=== PATIENT | male | born 1955 | race Caucasian/White ===

== ENCOUNTER 2024-01-22 17:15 | Inpatient (IN) | payer MEDICAID ==
[~2024-01-22] VITALS: Ht 182.9 cm; Wt 75.7 kg
[2024-01-22 17:33] LABS: BASOPHILS % (AUTO) 0.1 % (0.0-2.0); EOSINOPHILS % (AUTO) 0.1 % (0.0-6.0); HEMATOCRIT 43 % (39-51); HEMOGLOBIN 12.8 g/dL (13.5-17.5); LYMPHOCYTES # (AUTO) 2.3 K/uL (0.8-4.8); LYMPHOCYTES % (AUTO) 12.4 % (20.0-44.0); MEAN CORPUSCULAR HEMOGLOBIN 23 PG (26.0-33.0); MEAN CORPUSCULAR HGB CONC 30 g/dl (31.0-36.0); MEAN CORPUSCULAR VOLUME 77 fL (80-96); MONOCYTES # (AUTO) 0.9 K/uL (0.1-1.30); MONOCYTES % (AUTO) 4.7 % (2.0-12.0); NEUTROPHILS # (AUTO) 15.2 K/uL (1.8-8.9); NEUTROPHILS % (AUTO) 82.7 % (43.0-81.0); PLATELET COUNT (AUTO) 371 K/uL (150-450); RED BLOOD CELL COUNT(AUTO) 5.64 MIL/uL (4.5-6.0); RED CELL DISTRIBUTION WIDTH 20.7 % (11.5-15.0); WHITE BLOOD COUNT (AUTO) 18.3 K/uL (4.3-11.0)
[2024-01-22 17:41] LABS: CALCIUM, SERUM 10.4 mg/dL (8.5-10.1); CARBON DIOXIDE 26 mmol/L (21-32); CHLORIDE 111 mmol/L (98-107); CREATININE 1.3 mg/dL (0.6-1.3); GLUCOSE 235 mg/dL (74-106); POTASSIUM 4.6 mmol/L (3.5-5.1); SODIUM SERUM 150 mmol/L (136-145); UREA NITROGEN, BLOOD 57 mg/dL (7-18)
[2024-01-22] MEDS: CEFEPIME 1 GM in IV D5W 50 ML IV ONE (17:46)
[2024-01-22] MEDS: VANCOMYCIN 1 GM in IV D5W 250 ML IV ONE (17:46)
[2024-01-22] MEDS: IV NS 0.9% 1,000 ML BAG IV ONE (17:46)
[2024-01-22 17:50] LABS: INR 1.53 (0.91-1.10); PARTIAL THROMBOPLASTIN TIME 24.6 SEC (24.3-34.3); PROTHROMBIN TIME 15.4 SECS (9.2-11.1)
[2024-01-22 17:53] LABS: LACTIC ACID 5.8 mmol/L (0.4-2.0)
[2024-01-22 17:56] LABS: ALANINE AMINOTRANSFERASE 35 U/L (12-78); ALBUMIN 2.5 g/dL (3.4-5.0); ALKALINE PHOSPHATASE 183 U/L (46-116); ASPARTATE AMINOTRANSFERASE 36 U/L (15-37); BILIRUBIN,DIRECT 0.2 mg/dL (0.0-0.2); BILIRUBIN,TOTAL 0.4 mg/dL (0.2-1.0); TOTAL PROTEIN, SERUM 10.1 g/dL (6.4-8.2)
[2024-01-22] MEDS ORDERED: MIDAZOLAM HCL 100 MG in IV NS 0.9% 80 ML IV PRN (18:00)
[2024-01-22 18:11] LABS: LYMPHOCYTES % (MANUAL) 14 % (16-48); MONOCYTES % (MANUAL) 4 % (0-11.0); NEUTROPHILS % (MANUAL) 82 (42-76); PLATELET ESTIMATE ADEQUATE
[2024-01-22 18:12] LABS: ANISOCYTOSIS 1+
[2024-01-22] MEDS ORDERED: LINA5TAB GT (18:44)
[2024-01-22] MEDS ORDERED: MAGN400O6 GT (18:44)
[2024-01-22] MEDS ORDERED: DOCU100C36 GT (18:44)
[2024-01-22] MEDS ORDERED: ACET-637 GT (18:44)
[2024-01-22] MEDS ORDERED: AMIN30LI66 GT (18:44)
[2024-01-22] MEDS ORDERED: SENN-261 GT (18:44)
[2024-01-22] MEDS ORDERED: CRAN300T GT (18:44)
[2024-01-22] MEDS ORDERED: APIX5TAB GT (18:44)
[2024-01-22] MEDS ORDERED: METF-442 GT (18:44)
[2024-01-22] MEDS ORDERED: MULT9LIQ6 GT (18:44)
[2024-01-22] MEDS ORDERED: INSU100V39 SQ (18:44)
[2024-01-22] MEDS ORDERED: ASCO500L2 GT (18:44)
[2024-01-22] MEDS ORDERED: ATOR20TA GT (18:44)
[2024-01-22] MEDS ORDERED: ACET325T53 GT (18:44)
[2024-01-22] MEDS ORDERED: Z GUARD REMEDY 4 OZ OINT TP PRN (19:00)
[2024-01-22] MEDS ORDERED: MAGNESIUM HYDROXIDE 30 ML UDC PO PRN (19:00)
[2024-01-22] MEDS ORDERED: ONDANSETRON HCL/PF 4 MG/2 ML VIAL IVP PRN (19:00)
[2024-01-22] MEDS ORDERED: MAG HYDROX/AL HYDROX/SIMETH 30 ML UDC PO PRN (19:00)
[2024-01-22] MEDS ORDERED: ACETAMINOPHEN 325 MG TABLET PO PRN (19:00)
[2024-01-22 19:15] LABS: ABG BASE EXCESS -2.5 mmol/L (-2.0-3.0); ABG OXYGEN SATURATION 76.9 % (94.0-98.0); ABG PCO2 43.8 mmHg (35.0-48.0); ABG PH 7.342 (7.350-7.450); ABG PO2 44.7 mmHg (83.0-108.0); ABG TOTAL HEMOGLOBIN 11.7 G/dL (13.5-17.5); COHb 0.3 % (0.5-1.5); MetHb 0.3 % (0.0-1.5); O2Hb 76.4 % (94.0-97.0); PEEP,BG 5 cm H2O; SITE, ABG LEFT RADIAL; VT, ABG 500 mL
[2024-01-22] MEDS ORDERED: CEFEPIME 1 GM in IV D5W 50 ML IV SCH (21:00)
[2024-01-23] VITALS (73 sets, daily range): BP systolic 76–120; BP diastolic 54–91; TEMP 98.4–101; O2SAT 97–100
[2024-01-23] MEDS: PROPOFOL 100 ML IV PRN (00:04)
[2024-01-23] MEDS: IV NS 0.9% 1,000 ML IV PRN (00:37)
[2024-01-23 04:51] LABS: BASOPHILS % (AUTO) 0.2 % (0.0-2.0); HEMATOCRIT 34 % (39-51); HEMOGLOBIN 10.3 g/dL (13.5-17.5); LYMPHOCYTES # (AUTO) 0.9 K/uL (0.8-4.8); LYMPHOCYTES % (AUTO) 4.7 % (20.0-44.0); MEAN CORPUSCULAR HEMOGLOBIN 22 PG (26.0-33.0); MEAN CORPUSCULAR HGB CONC 30 g/dl (31.0-36.0); MEAN CORPUSCULAR VOLUME 74 fL (80-96); MONOCYTES # (AUTO) 1.1 K/uL (0.1-1.30); NEUTROPHILS # (AUTO) 16.4 K/uL (1.8-8.9); NEUTROPHILS % (AUTO) 89.1 % (43.0-81.0); PLATELET COUNT (AUTO) 325 K/uL (150-450); RED BLOOD CELL COUNT(AUTO) 4.62 MIL/uL (4.5-6.0); RED CELL DISTRIBUTION WIDTH 20.4 % (11.5-15.0); WHITE BLOOD COUNT (AUTO) 18.5 K/uL (4.3-11.0)
[2024-01-23 07:09] LABS: CALCIUM, SERUM 9.3 mg/dL (8.5-10.1); CARBON DIOXIDE 24 mmol/L (21-32); CHLORIDE 115 mmol/L (98-107); CREATININE 1.1 mg/dL (0.6-1.3); GLUCOSE 178 mg/dL (74-106); MAGNESIUM 2.5 mg/dL (1.8-2.4); PHOSPHORUS 3.2 mg/dL (2.5-4.9); POTASSIUM 4.7 mmol/L (3.5-5.1); SODIUM SERUM 152 mmol/L (136-145); UREA NITROGEN, BLOOD 64 mg/dL (7-18)
[2024-01-23 08:01] LABS: BAND % (MANUAL) 7 % (0.0-5.0); BASOPHILS % (MANUAL) 0 % (0.0-2.0); EOSINOPHILS % (MANUAL) 0 % (0-4); LYMPHOCYTES % (MANUAL) 7 % (16-48); MONOCYTES % (MANUAL) 5 % (0-11.0); NEUTROPHILS % (MANUAL) 81 (42-76)
[2024-01-23 08:02] LABS: ANISOCYTOSIS 1+; PLATELET ESTIMATE ADEQUATE
[2024-01-23] MEDS ORDERED: DEXTROSE 50%-WATER 50 ML DISP.SYRIN IV PRN (08:30)
[2024-01-23] MEDS ORDERED: ETOMIDATE 2 MG/ML VIAL IV ONE (08:34)
[2024-01-23] MEDS: IV NS 0.9% 500 ML IV ONE (08:35)
[2024-01-23] MEDS: CEFEPIME 2 GM in IV D5W 100 ML IV SCH (08:40)
[2024-01-23] MEDS: ACETAMINOPHEN 650 MG/SUPP.RECT RC PRN (08:40)
[2024-01-23] MEDS: NEOMY SULF/BACITRAC ZN/POLY 15 GM TUBE TP SCH (08:41)
[2024-01-23] MEDS: THERAHONEY GEL 1.5 OZ TUBE TP SCH (08:41)
[2024-01-23] MEDS: IV D5/0.45 NACL 1,000 ML IV ONE (09:00)
[2024-01-23] MEDS ORDERED: IV NS 0.9% 250 ML IV PRN (09:00)
[2024-01-23] MEDS: PHENYLEPHRINE 50 MG in IV NS 0.9% 245 ML IV PRN (09:45)
[2024-01-23] MEDS: BLOOD SUGAR DIAGNOSTIC 1 EACH STRIP IN SCH (12:59)
[2024-01-23] MEDS: INSULIN REGULAR, HUMAN 100 UNIT/ML 3 ML VIAL SQ PRN (13:03)
[2024-01-23 15:42] LABS: CREATININE, URINE 48.6 MG/DL (30.0-125.0); URINE TOTAL PROTEIN 72.8 mg/dL (0-11.9)
[2024-01-23 16:30] LABS: APPEARANCE,URINE SLIGHTLY CLOUDY (CLEAR); BILIRUBIN,URINE NEGATIVE (NEGATIVE); BLOOD, URINE 3+ Ery/uL (NEGATIVE); COLOR,URINE YELLOW (YELLOW); KETONES,URINE NEGATIVE (NEGATIVE); LEUKOCYTE ESTERASE ,URINE 2+ (NEGATIVE); NITRITE, URINE NEGATIVE (NEGATIVE); PROTEIN,URINE 1+ mg/dl (NEGATIVE); UGLUCOSE NEGATIVE (NEGATIVE); UROBILINOGEN,URINE 0.2 EU/dL (0.2)
[2024-01-23] MEDS: IV D5/0.45 NACL 1,000 ML IV PRN (16:40)
[2024-01-23] MEDS: VANCOMYCIN HCL 1.25 GM in IV D5W 250 ML IV SCH (16:52)
[2024-01-23] MEDS ORDERED: VANCOMYCIN 1 GM in IV D5W 250ml IV SCH (17:00)
[2024-01-23 17:54] LABS: RBC,URINE 21-50 /HPF (0-2); WBC,URINE 51-80 /HPF (0-3)
[2024-01-23 17:55] LABS: ADD URINE CULTURE YES; BACTERIA,URINE Moderate /HPF (None Seen)
[2024-01-23 17:57] LABS: YEAST,URINE Few /HPF (None Seen)
[2024-01-23 18:37] LABS: EOSINOPHIL,URINE None Seen
[2024-01-24] VITALS (96 sets, daily range): BP systolic 91–127; BP diastolic 60–99; TEMP 98.1–99; O2SAT 92–100
[2024-01-24 05:52] LABS: BASOPHILS % (AUTO) 0.3 % (0.0-2.0); EOSINOPHILS # (AUTO) 0.1 K/uL (0.0-0.7); EOSINOPHILS % (AUTO) 0.5 % (0.0-6.0); HEMATOCRIT 31 % (39-51); HEMOGLOBIN 9.3 g/dL (13.5-17.5); LYMPHOCYTES # (AUTO) 1.5 K/uL (0.8-4.8); LYMPHOCYTES % (AUTO) 9.3 % (20.0-44.0); MEAN CORPUSCULAR HEMOGLOBIN 23 PG (26.0-33.0); MEAN CORPUSCULAR HGB CONC 30 g/dl (31.0-36.0); MEAN CORPUSCULAR VOLUME 74 fL (80-96); MONOCYTES # (AUTO) 1.2 K/uL (0.1-1.30); MONOCYTES % (AUTO) 7.7 % (2.0-12.0); NEUTROPHILS # (AUTO) 13.1 K/uL (1.8-8.9); NEUTROPHILS % (AUTO) 82.2 % (43.0-81.0); PLATELET COUNT (AUTO) 290 K/uL (150-450); RED BLOOD CELL COUNT(AUTO) 4.12 MIL/uL (4.5-6.0); RED CELL DISTRIBUTION WIDTH 20.7 % (11.5-15.0)
[2024-01-24 06:05] LABS: ALBUMIN 1.6 g/dL (3.4-5.0); BILIRUBIN,TOTAL 0.4 mg/dL (0.2-1.0); CREATININE 0.8 mg/dL (0.6-1.3); MAGNESIUM 2.4 mg/dL (1.8-2.4); PHOSPHORUS 1.9 mg/dL (2.5-4.9); POTASSIUM 3.1 mmol/L (3.5-5.1); TOTAL PROTEIN, SERUM 7.5 g/dL (6.4-8.2)
[2024-01-24 07:31] LABS: ABG BASE EXCESS -2.1 mmol/L (-2.0-3.0); ABG OXYGEN SATURATION 97.9 % (94.0-98.0); ABG PCO2 32.3 mmHg (35.0-48.0); ABG PH 7.439 (7.350-7.450); ABG PO2 102.5 mmHg (83.0-108.0); ABG TOTAL HEMOGLOBIN 10.9 G/dL (13.5-17.5); COHb 0.3 % (0.5-1.5); MetHb 0.1 % (0.0-1.5); O2Hb 97.5 % (94.0-97.0); PEEP,BG 0 cm H2O; SITE, ABG RIGHT BRACHIAL; VT, ABG 500 mL
[2024-01-24 08:19] LABS: BAND % (MANUAL) 1 % (0.0-5.0); HYPOCHROMASIA 1+; LYMPHOCYTES % (MANUAL) 12 % (16-48); MONOCYTES % (MANUAL) 6 % (0-11.0); NEUTROPHILS % (MANUAL) 81 (42-76); PLATELET ESTIMATE ADEQUATE
[2024-01-24 08:20] LABS: ANISOCYTOSIS 1+
[2024-01-24] MEDS ORDERED: GLUCERNA 1.2 1,000 ML BOTTLE NG PRN (08:30)
[2024-01-24] MEDS ORDERED: MAGNESIUM HYDROXIDE 30 ML UDC GT PRN ×2 (08:42→09:00)
[2024-01-24] MEDS ORDERED: DOCUSATE SODIUM 100 MG CAPSULE PO SCH (09:00)
[2024-01-24] MEDS: POTASSIUM PHOSPHATE MM 7.5 MMOL in IV NS 0.9% 100 ML IV SCH (09:15)
[2024-01-24] MEDS: DOCUSATE SODIUM LIQ 100 MG/10 ML UDC GT SCH (09:18)
[2024-01-24] MEDS: APIXABAN 5 MG TABLET GT SCH (09:23)
[2024-01-24] MEDS: POTASSIUM CHLORIDE 20 MEQ POWDER PACKET NG SCH (10:59)
[2024-01-24] MEDS: VANCOMYCIN 750 MG in IV D5W 250 ML IV SCH (15:29)
[2024-01-24] MEDS ORDERED: NEUTRA PHOS 1 POWD.PACKET NG ONE (16:00)
[2024-01-24] MEDS: MUPIROCIN OINT 2% 22 GM TUBE TP SCH (20:09)
[2024-01-24] MEDS: SENNOSIDES 8.6 MG TABLET GT SCH (21:56)
[2024-01-25] VITALS (95 sets, daily range): BP systolic 90–141; BP diastolic 62–112; TEMP 98–98.6; O2SAT 98–100
[2024-01-25 04:37] LABS: BASOPHILS % (AUTO) 0.2 % (0.0-2.0); EOSINOPHILS # (AUTO) 0.2 K/uL (0.0-0.7); EOSINOPHILS % (AUTO) 1.4 % (0.0-6.0); HEMATOCRIT 30 % (39-51); HEMOGLOBIN 9.2 g/dL (13.5-17.5); LYMPHOCYTES # (AUTO) 1.1 K/uL (0.8-4.8); LYMPHOCYTES % (AUTO) 9.7 % (20.0-44.0); MEAN CORPUSCULAR HEMOGLOBIN 23 PG (26.0-33.0); MEAN CORPUSCULAR HGB CONC 30 g/dl (31.0-36.0); MEAN CORPUSCULAR VOLUME 74 fL (80-96); MONOCYTES # (AUTO) 0.8 K/uL (0.1-1.30); MONOCYTES % (AUTO) 6.9 % (2.0-12.0); NEUTROPHILS # (AUTO) 9.1 K/uL (1.8-8.9); NEUTROPHILS % (AUTO) 81.8 % (43.0-81.0); PLATELET COUNT (AUTO) 271 K/uL (150-450); RED BLOOD CELL COUNT(AUTO) 4.08 MIL/uL (4.5-6.0); RED CELL DISTRIBUTION WIDTH 20.1 % (11.5-15.0); WHITE BLOOD COUNT (AUTO) 11.1 K/uL (4.3-11.0)
[2024-01-25 04:51] LABS: CALCIUM, SERUM 9.1 mg/dL (8.5-10.1); CREATININE 0.7 mg/dL (0.6-1.3); MAGNESIUM 1.8 mg/dL (1.8-2.4); PHOSPHORUS 2.2 mg/dL (2.5-4.9); POTASSIUM 2.8 mmol/L (3.5-5.1)
[2024-01-25] MEDS: POTASSIUM CL. PREMIX PERIPHER. 50 ML IV SCH ×2 (06:50→12:32)
[2024-01-25 08:06] LABS: PTH, INTACT 25 pg/mL (15-65)
[2024-01-25] MEDS: NEUTRA PHOS 1 POWD.PACKET PO ONE (09:00)
[2024-01-25 16:11] LABS: CALCIUM, SERUM 8.6 mg/dL (8.5-10.1); CREATININE 0.6 mg/dL (0.6-1.3)
[2024-01-25] MEDS: GLUCERNA 1.2 1,000 ML BOTTLE NG PRN (17:00)
[2024-01-26] VITALS (97 sets, daily range): BP systolic 89–120; BP diastolic 54–95; TEMP 97.9–98.6; O2SAT 97–100
[2024-01-26 04:51] LABS: BASOPHILS % (AUTO) 0.3 % (0.0-2.0); EOSINOPHILS # (AUTO) 0.1 K/uL (0.0-0.7); EOSINOPHILS % (AUTO) 1.7 % (0.0-6.0); HEMATOCRIT 28 % (39-51); HEMOGLOBIN 8.6 g/dL (13.5-17.5); LYMPHOCYTES # (AUTO) 1.1 K/uL (0.8-4.8); LYMPHOCYTES % (AUTO) 15.6 % (20.0-44.0); MEAN CORPUSCULAR HEMOGLOBIN 23 PG (26.0-33.0); MEAN CORPUSCULAR HGB CONC 31 g/dl (31.0-36.0); MEAN CORPUSCULAR VOLUME 74 fL (80-96); MONOCYTES # (AUTO) 0.5 K/uL (0.1-1.30); MONOCYTES % (AUTO) 7.1 % (2.0-12.0); NEUTROPHILS # (AUTO) 5.1 K/uL (1.8-8.9); NEUTROPHILS % (AUTO) 75.3 % (43.0-81.0); PLATELET COUNT (AUTO) 252 K/uL (150-450); RED BLOOD CELL COUNT(AUTO) 3.81 MIL/uL (4.5-6.0); RED CELL DISTRIBUTION WIDTH 20.2 % (11.5-15.0); WHITE BLOOD COUNT (AUTO) 6.7 K/uL (4.3-11.0)
[2024-01-26 05:08] LABS: CALCIUM, SERUM 8.4 mg/dL (8.5-10.1); CREATININE 0.6 mg/dL (0.6-1.3); MAGNESIUM 1.8 mg/dL (1.8-2.4); PHOSPHORUS 2.3 mg/dL (2.5-4.9); POTASSIUM 3.7 mmol/L (3.5-5.1)
[2024-01-26] MEDS: POTASSIUM PHOSPHATE MM 7.5 MMOL in IV NS 0.9% 100 ML IV SCH (09:00)
[2024-01-26] MEDS ORDERED: NEUTRA PHOS 1 POWD.PACKET NG ONE (16:00)
[2024-01-26] MEDS: CEFEPIME 2 GM in IV D5W 100 ML IV SCH (20:08)
[2024-01-27] VITALS (52 sets, daily range): BP systolic 93–122; BP diastolic 66–95; TEMP 97.6–98.5; O2SAT 95–100
[2024-01-27 04:53] LABS: BASOPHILS % (AUTO) 0.3 % (0.0-2.0); EOSINOPHILS # (AUTO) 0.1 K/uL (0.0-0.7); EOSINOPHILS % (AUTO) 1.4 % (0.0-6.0); HEMATOCRIT 27 % (39-51); HEMOGLOBIN 8.7 g/dL (13.5-17.5); LYMPHOCYTES # (AUTO) 0.9 K/uL (0.8-4.8); LYMPHOCYTES % (AUTO) 10.9 % (20.0-44.0); MEAN CORPUSCULAR HEMOGLOBIN 24 PG (26.0-33.0); MEAN CORPUSCULAR HGB CONC 32 g/dl (31.0-36.0); MEAN CORPUSCULAR VOLUME 73 fL (80-96); MONOCYTES # (AUTO) 0.6 K/uL (0.1-1.30); MONOCYTES % (AUTO) 7.6 % (2.0-12.0); NEUTROPHILS # (AUTO) 6.5 K/uL (1.8-8.9); NEUTROPHILS % (AUTO) 79.8 % (43.0-81.0); PLATELET COUNT (AUTO) 245 K/uL (150-450); RED BLOOD CELL COUNT(AUTO) 3.69 MIL/uL (4.5-6.0); RED CELL DISTRIBUTION WIDTH 20.1 % (11.5-15.0); WHITE BLOOD COUNT (AUTO) 8.1 K/uL (4.3-11.0)
[2024-01-27 05:11] LABS: CALCIUM, SERUM 8.7 mg/dL (8.5-10.1); CREATININE 0.6 mg/dL (0.6-1.3); MAGNESIUM 1.8 mg/dL (1.8-2.4); PHOSPHORUS 2.7 mg/dL (2.5-4.9); POTASSIUM 3.8 mmol/L (3.5-5.1)
[2024-01-27] MEDS ORDERED: DC PROPOFOL WHEN EXTUBATED XX PRN (09:00)
[2024-01-27 09:59] LABS: ABG BASE EXCESS -0.7 mmol/L (-2.0-3.0); ABG PCO2 29.8 mmHg (35.0-48.0); ABG PH 7.488 (7.350-7.450); ABG PO2 138.3 mmHg (83.0-108.0); ABG TOTAL HEMOGLOBIN 9.7 G/dL (13.5-17.5); COHb 0.3 % (0.5-1.5); MetHb 0.1 % (0.0-1.5); O2Hb 98.6 % (94.0-97.0); PEEP,BG 5 cm H2O; SITE, ABG ALINE
[2024-01-28] VITALS (24 sets, daily range): BP systolic 85–112; BP diastolic 59–82; TEMP 97.7–98.7; O2SAT 93–100
[2024-01-28 05:05] LABS: BASOPHILS % (AUTO) 0.4 % (0.0-2.0); EOSINOPHILS # (AUTO) 0.1 K/uL (0.0-0.7); EOSINOPHILS % (AUTO) 1.9 % (0.0-6.0); HEMATOCRIT 26 % (39-51); HEMOGLOBIN 8.3 g/dL (13.5-17.5); LYMPHOCYTES # (AUTO) 1.1 K/uL (0.8-4.8); LYMPHOCYTES % (AUTO) 16.4 % (20.0-44.0); MEAN CORPUSCULAR HEMOGLOBIN 23 PG (26.0-33.0); MEAN CORPUSCULAR HGB CONC 32 g/dl (31.0-36.0); MEAN CORPUSCULAR VOLUME 73 fL (80-96); MONOCYTES # (AUTO) 0.6 K/uL (0.1-1.30); MONOCYTES % (AUTO) 8.7 % (2.0-12.0); NEUTROPHILS # (AUTO) 4.8 K/uL (1.8-8.9); NEUTROPHILS % (AUTO) 72.6 % (43.0-81.0); PLATELET COUNT (AUTO) 238 K/uL (150-450); RED BLOOD CELL COUNT(AUTO) 3.57 MIL/uL (4.5-6.0); RED CELL DISTRIBUTION WIDTH 19.8 % (11.5-15.0); WHITE BLOOD COUNT (AUTO) 6.6 K/uL (4.3-11.0)
[2024-01-28 05:13] LABS: CALCIUM, SERUM 8.2 mg/dL (8.5-10.1); CREATININE 0.6 mg/dL (0.6-1.3); MAGNESIUM 1.7 mg/dL (1.8-2.4); PHOSPHORUS 2.4 mg/dL (2.5-4.9); POTASSIUM 3.8 mmol/L (3.5-5.1)
[2024-01-28] MEDS: MIDODRINE HCL (5MG) 5 MG TABLET PO SCH (10:00)
[2024-01-28] MEDS: MAGNESIUM OXIDE 400 MG TABLET GT ONE (13:03)
[2024-01-28] MEDS: IV NS 0.9% 500 ML IV ONE (13:44)
[2024-01-28] MEDS: MEROPENEM 1 G in IV NS 0.9% 100 ML IV SCH (16:24)
[2024-01-28] MEDS: NEUTRA PHOS 1 POWD.PACKET GT ONE (16:24)
[2024-01-29] VITALS (19 sets, daily range): BP systolic 91–121; BP diastolic 59–86; TEMP 98–99.4; O2SAT 96–100
[2024-01-29 04:34] LABS: BASOPHILS % (AUTO) 0.4 % (0.0-2.0); EOSINOPHILS # (AUTO) 0.1 K/uL (0.0-0.7); EOSINOPHILS % (AUTO) 1.6 % (0.0-6.0); HEMATOCRIT 27 % (39-51); HEMOGLOBIN 8.6 g/dL (13.5-17.5); LYMPHOCYTES # (AUTO) 1.2 K/uL (0.8-4.8); LYMPHOCYTES % (AUTO) 16.5 % (20.0-44.0); MEAN CORPUSCULAR HEMOGLOBIN 23 PG (26.0-33.0); MEAN CORPUSCULAR HGB CONC 32 g/dl (31.0-36.0); MEAN CORPUSCULAR VOLUME 73 fL (80-96); MONOCYTES # (AUTO) 0.7 K/uL (0.1-1.30); MONOCYTES % (AUTO) 9.7 % (2.0-12.0); NEUTROPHILS # (AUTO) 5.3 K/uL (1.8-8.9); NEUTROPHILS % (AUTO) 71.8 % (43.0-81.0); PLATELET COUNT (AUTO) 278 K/uL (150-450); RED BLOOD CELL COUNT(AUTO) 3.66 MIL/uL (4.5-6.0); RED CELL DISTRIBUTION WIDTH 19.2 % (11.5-15.0); WHITE BLOOD COUNT (AUTO) 7.4 K/uL (4.3-11.0)
[2024-01-29 04:58] LABS: CALCIUM, SERUM 8.8 mg/dL (8.5-10.1); CREATININE 0.6 mg/dL (0.6-1.3)
[2024-01-29 05:37] LABS: EOSINOPHILS % (MANUAL) 2 % (0-4); HYPOCHROMASIA 1+; LYMPHOCYTES % (MANUAL) 16 % (16-48); METAMYELOCYTES % 1 % (0-0); MONOCYTES % (MANUAL) 11 % (0-11.0); NEUTROPHILS % (MANUAL) 70 (42-76); PLATELET ESTIMATE ADEQUATE
[2024-01-29 05:38] LABS: ANISOCYTOSIS 2+
[2024-01-29] MEDS: HYDROCORTISONE SOD SUCCINATE 100 MG/2 ML VIAL IV SCH (10:35)
[2024-01-29] MEDS: MIDODRINE HCL (5MG) 5 MG TABLET PO SCH (12:42)
[2024-01-29] MEDS: APIXABAN 5 MG TABLET PO SCH (16:18)
[2024-01-30] VITALS (7 sets, daily range): BP systolic 109–123; BP diastolic 78–89; TEMP 97.3–98.4; O2SAT 94–100
[2024-01-30 00:01] LABS: BASOPHILS % (AUTO) 0.2 % (0.0-2.0); HEMATOCRIT 30 % (39-51); HEMOGLOBIN 9.5 g/dL (13.5-17.5); LYMPHOCYTES # (AUTO) 0.4 K/uL (0.8-4.8); LYMPHOCYTES % (AUTO) 8.8 % (20.0-44.0); MEAN CORPUSCULAR HEMOGLOBIN 23 PG (26.0-33.0); MEAN CORPUSCULAR HGB CONC 32 g/dl (31.0-36.0); MEAN CORPUSCULAR VOLUME 73 fL (80-96); MONOCYTES # (AUTO) 0.1 K/uL (0.1-1.30); MONOCYTES % (AUTO) 1.9 % (2.0-12.0); NEUTROPHILS # (AUTO) 4.5 K/uL (1.8-8.9); NEUTROPHILS % (AUTO) 89.1 % (43.0-81.0); PLATELET COUNT (AUTO) 318 K/uL (150-450); RED BLOOD CELL COUNT(AUTO) 4.15 MIL/uL (4.5-6.0); RED CELL DISTRIBUTION WIDTH 19.8 % (11.5-15.0); WHITE BLOOD COUNT (AUTO) 5.1 K/uL (4.3-11.0)
[2024-01-30 00:45] LABS: LYMPHOCYTES % (MANUAL) 10 % (16-48); MONOCYTES % (MANUAL) 4 % (0-11.0); NEUTROPHILS % (MANUAL) 86 (42-76)
[2024-01-30 00:46] LABS: PLATELET ESTIMATE ADEQUATE
[2024-01-30 00:47] LABS: ANISOCYTOSIS 1+; HYPOCHROMASIA 1+
[2024-01-30 04:38] LABS: BASOPHILS % (AUTO) 0.2 % (0.0-2.0); HEMATOCRIT 29 % (39-51); HEMOGLOBIN 9.1 g/dL (13.5-17.5); LYMPHOCYTES # (AUTO) 0.6 K/uL (0.8-4.8); LYMPHOCYTES % (AUTO) 10.9 % (20.0-44.0); MEAN CORPUSCULAR HEMOGLOBIN 23 PG (26.0-33.0); MEAN CORPUSCULAR HGB CONC 31 g/dl (31.0-36.0); MEAN CORPUSCULAR VOLUME 72 fL (80-96); MONOCYTES # (AUTO) 0.3 K/uL (0.1-1.30); MONOCYTES % (AUTO) 4.4 % (2.0-12.0); NEUTROPHILS # (AUTO) 4.9 K/uL (1.8-8.9); NEUTROPHILS % (AUTO) 84.5 % (43.0-81.0); PLATELET COUNT (AUTO) 334 K/uL (150-450); RED BLOOD CELL COUNT(AUTO) 4.04 MIL/uL (4.5-6.0); RED CELL DISTRIBUTION WIDTH 19.9 % (11.5-15.0); WHITE BLOOD COUNT (AUTO) 5.8 K/uL (4.3-11.0)
[2024-01-30 04:49] LABS: CALCIUM, SERUM 8.7 mg/dL (8.5-10.1); CREATININE 0.7 mg/dL (0.6-1.3); POTASSIUM 4.6 mmol/L (3.5-5.1)
[2024-01-30 04:54] LABS: MAGNESIUM 2.1 mg/dL (1.8-2.4); PHOSPHORUS 2.7 mg/dL (2.5-4.9)
[2024-01-30 05:12] LABS: LYMPHOCYTES % (MANUAL) 8 % (16-48); MONOCYTES % (MANUAL) 3 % (0-11.0); NEUTROPHILS % (MANUAL) 89 (42-76); PLATELET ESTIMATE ADEQUATE
[2024-01-30 05:13] LABS: ANISOCYTOSIS 2+; HYPOCHROMASIA 1+
[2024-01-30] MEDS ORDERED: SILVER NITRATE APPLICATOR 1 EA BOX TP ONE (07:00)
[2024-01-31 00:27] LABS: HEMOGLOBIN 8.9 g/dL (13.5-17.5)
[2024-01-31 01:57] VITALS: O2SAT 98
[2024-01-31 05:10] LABS: *SPE A/G RATIO 0.4 (0.7-1.7); *SPE ALPHA-1-GLOBULIN 0.4 g/dL (0.0-0.4); *SPE ALPHA-2-GLOBULIN 0.9 g/dL (0.4-1.0); *SPE BETA GLOBULIN 1.4 g/dL (0.7-1.3); *SPE GLOBULIN, TOTAL 4.6 g/dL (2.2-3.9); *SPE M-SPIKE Not Observed g/dL (Not Observed); *SPE PROTEIN TOTAL 6.6 g/dL (6.0-8.5); *SPEGAMMA GLOBULIN 1.9 g/dL (0.4-1.8)
[2024-01-31 05:33] VITALS: BP 116/83; TEMP 98.1; O2SAT 98
[2024-01-31 07:00] VITALS: BP 121/86; TEMP 97.9; O2SAT 100
[2024-01-31 07:19] LABS: CALCIUM, SERUM 8.8 mg/dL (8.5-10.1); CREATININE 0.7 mg/dL (0.6-1.3); POTASSIUM 4.3 mmol/L (3.5-5.1)
[2024-01-31 12:00] VITALS: BP 108/76; TEMP 98.4; O2SAT 99
[2024-01-31] MEDS: ACETAMINOPHEN 650 MG/20.3 ML UDC GT PRN (14:38)
[2024-01-31 16:11] VITALS: BP 123/85; TEMP 97.9; O2SAT 94
[2024-01-31 20:00] VITALS: BP 118/76; TEMP 98; O2SAT 99
[2024-02-01 06:05] VITALS: BP 119/74; TEMP 97.7; O2SAT 96
[2024-02-01 06:51] LABS: HEMATOCRIT 27 % (39-51); HEMOGLOBIN 8.4 g/dL (13.5-17.5); LYMPHOCYTES # (AUTO) 0.9 K/uL (0.8-4.8); LYMPHOCYTES % (AUTO) 11.6 % (20.0-44.0); MEAN CORPUSCULAR HEMOGLOBIN 23 PG (26.0-33.0); MEAN CORPUSCULAR HGB CONC 32 g/dl (31.0-36.0); MEAN CORPUSCULAR VOLUME 73 fL (80-96); MONOCYTES # (AUTO) 0.7 K/uL (0.1-1.30); MONOCYTES % (AUTO) 8.2 % (2.0-12.0); NEUTROPHILS # (AUTO) 6.5 K/uL (1.8-8.9); NEUTROPHILS % (AUTO) 80.2 % (43.0-81.0); PLATELET COUNT (AUTO) 354 K/uL (150-450); RED BLOOD CELL COUNT(AUTO) 3.61 MIL/uL (4.5-6.0); RED CELL DISTRIBUTION WIDTH 20.7 % (11.5-15.0); WHITE BLOOD COUNT (AUTO) 8.1 K/uL (4.3-11.0)
[2024-02-01 07:18] LABS: CALCIUM, SERUM 8.8 mg/dL (8.5-10.1); CREATININE 0.7 mg/dL (0.6-1.3); POTASSIUM 4.2 mmol/L (3.5-5.1)
[2024-02-01] MEDS: MEROPENEM 1 G in IV NS 0.9% 100 ML IV SCH (13:32)
[2024-02-01] MEDS: HYDROCORTISONE SOD SUCCINATE 100 MG/2 ML VIAL IV SCH (17:27)
[2024-02-01 20:00] VITALS: BP 128/79; TEMP 98.1; O2SAT 96
[2024-02-01 23:41] VITALS: O2SAT 99
[2024-02-02] VITALS (8 sets, daily range): BP systolic 110–131; BP diastolic 74–88; TEMP 97.3–97.9; O2SAT 94–99
[2024-02-02 19:32] LABS: BASOPHILS % (AUTO) 0.2 % (0.0-2.0); EOSINOPHILS % (AUTO) 0.1 % (0.0-6.0); HEMATOCRIT 30 % (39-51); HEMOGLOBIN 9.4 g/dL (13.5-17.5); LYMPHOCYTES # (AUTO) 2.1 K/uL (0.8-4.8); LYMPHOCYTES % (AUTO) 21.9 % (20.0-44.0); MEAN CORPUSCULAR HEMOGLOBIN 23 PG (26.0-33.0); MEAN CORPUSCULAR HGB CONC 32 g/dl (31.0-36.0); MEAN CORPUSCULAR VOLUME 74 fL (80-96); MONOCYTES % (AUTO) 10.7 % (2.0-12.0); NEUTROPHILS # (AUTO) 6.4 K/uL (1.8-8.9); NEUTROPHILS % (AUTO) 67.1 % (43.0-81.0); PLATELET COUNT (AUTO) 392 K/uL (150-450); RED BLOOD CELL COUNT(AUTO) 4.03 MIL/uL (4.5-6.0); RED CELL DISTRIBUTION WIDTH 20.3 % (11.5-15.0); WHITE BLOOD COUNT (AUTO) 9.5 K/uL (4.3-11.0)
[2024-02-02 19:51] LABS: CREATININE 0.6 mg/dL (0.6-1.3); PHOSPHORUS 2.3 mg/dL (2.5-4.9); POTASSIUM 4.2 mmol/L (3.5-5.1)
[2024-02-02 19:54] LABS: IRON, SERUM 22 ug/dl (50-175); TOTAL IRON BINDING CAPACITY 245 ug/dl (250-450)
[2024-02-02 20:04] LABS: FERRITIN 135 ng/mL (8-388)
[2024-02-02 21:41] LABS: ANISOCYTOSIS 1+; BAND % (MANUAL) 1 % (0.0-5.0); LYMPHOCYTES % (MANUAL) 22 % (16-48); MONOCYTES % (MANUAL) 4 % (0-11.0); NEUTROPHILS % (MANUAL) 73 (42-76); PLATELET ESTIMATE ADEQUATE
[2024-02-03] VITALS (7 sets, daily range): BP systolic 100–130; BP diastolic 60–84; TEMP 95.4–98.4; O2SAT 94–100
[2024-02-03 06:52] LABS: EOSINOPHILS % (AUTO) 0.3 % (0.0-6.0); HEMATOCRIT 29 % (39-51); HEMOGLOBIN 8.8 g/dL (13.5-17.5); LYMPHOCYTES # (AUTO) 2.1 K/uL (0.8-4.8); LYMPHOCYTES % (AUTO) 22.4 % (20.0-44.0); MEAN CORPUSCULAR HEMOGLOBIN 23 PG (26.0-33.0); MEAN CORPUSCULAR HGB CONC 31 g/dl (31.0-36.0); MEAN CORPUSCULAR VOLUME 74 fL (80-96); MONOCYTES % (AUTO) 10.2 % (2.0-12.0); NEUTROPHILS # (AUTO) 6.4 K/uL (1.8-8.9); NEUTROPHILS % (AUTO) 67.1 % (43.0-81.0); PLATELET COUNT (AUTO) 386 K/uL (150-450); RED BLOOD CELL COUNT(AUTO) 3.85 MIL/uL (4.5-6.0); RED CELL DISTRIBUTION WIDTH 20.7 % (11.5-15.0); WHITE BLOOD COUNT (AUTO) 9.6 K/uL (4.3-11.0)
[2024-02-03 07:51] LABS: CALCIUM, SERUM 8.9 mg/dL (8.5-10.1); CREATININE 0.6 mg/dL (0.6-1.3); MAGNESIUM 2.3 mg/dL (1.8-2.4); PHOSPHORUS 2.4 mg/dL (2.5-4.9); POTASSIUM 4.4 mmol/L (3.5-5.1)
[2024-02-03] MEDS: HYDROCORTISONE SOD SUCCINATE 100 MG/2 ML VIAL IV SCH (08:45)
[2024-02-03] MEDS: VANCOMYCIN HCL 1.25 GM in IV D5W 250 ML IV SCH (13:43)
[2024-02-03] MEDS: NEUTRA PHOS 1 POWD.PACKET NG ONE (16:42)
[2024-02-04 00:15] VITALS: BP 128/68; TEMP 98.2; O2SAT 99
[2024-02-04 05:47] VITALS: BP 148/60; TEMP 98.2; O2SAT 99
[2024-02-04 07:11] LABS: CALCIUM, SERUM 8.8 mg/dL (8.5-10.1); CREATININE 0.6 mg/dL (0.6-1.3); POTASSIUM 4.4 mmol/L (3.5-5.1)
[2024-02-04 12:30] VITALS: BP 102/62
== END 2024-02-04 13:15 | DRG 720 ==
LOC: ER 17:18 → EDBD 21:01 → ICU 21:01 → TELE 01-29 15:03
PROVIDERS: ADMIT Internal Medicine; ATTEND Nurse Practitioner Acute Care
PROC: 5A1955Z Respiratory Ventilation, Greater than 96 Consecutive Hours (ICD-10-PCS; principal; 2024-01-22)
DX: A41.9 Sepsis, unspecified organism (principal); J96.01 Acute respiratory failure with hypoxia; N17.0 Acute kidney failure with tubular necrosis; G93.41 Metabolic encephalopathy; E43 Unspecified severe protein-calorie malnutrition; J15.69 Pneumonia due to other Gram-negative bacteria; L89.154 Pressure ulcer of sacral region, stage 4; R53.2 Functional quadriplegia; E87.0 Hyperosmolality and hypernatremia; R65.20 Severe sepsis without septic shock; Z20.822 Contact with and (suspected) exposure to COVID-19; Z86.73 Personal history of transient ischemic attack (TIA), and cerebral infarction without residual deficits; I10 Essential (primary) hypertension; I25.2 Old myocardial infarction; I48.91 Unspecified atrial fibrillation; Z87.440 Personal history of urinary (tract) infections; E11.51 Type 2 diabetes mellitus with diabetic peripheral angiopathy without gangrene; E11.621 Type 2 diabetes mellitus with foot ulcer; E78.5 Hyperlipidemia, unspecified; Z79.4 Long term (current) use of insulin; Z79.84 Long term (current) use of oral hypoglycemic drugs; Z79.01 Long term (current) use of anticoagulants; Z79.899 Other long term (current) drug therapy; E86.1 Hypovolemia; E87.20 Acidosis, unspecified; E88.09 Other disorders of plasma-protein metabolism, not elsewhere classified; E86.0 Dehydration; M89.8X9 Other specified disorders of bone, unspecified site; Z99.11 Dependence on respirator [ventilator] status; Z93.1 Gastrostomy status; Z93.0 Tracheostomy status; R13.10 Dysphagia, unspecified; F09 Unspecified mental disorder due to known physiological condition; I25.10 Atherosclerotic heart disease of native coronary artery without angina pectoris; D64.9 Anemia, unspecified; Y95 Nosocomial condition; E87.1 Hypo-osmolality and hyponatremia
CPT/HCPCS: 31720; 36415; 36600; 70450-TC; 71045-TC; 76770-TC; 80048-TC; 80053-TC; 80076-TC; 80202-TC; 81001; 82533; 82550-TC; 82570-TC; 82728-TC; 82803-TC; 82962-TC; 83540-TC; 83605-TC; 83735-TC; 83935-TC; 83970; 84100-TC; 84155; 84165; 84300-TC; 84478-TC; 84484-TC; 85025-TC; 85027-TC; 85378-TC; 85730-TC; 87040-TC; 87081-TC; 87086-TC; 94002-TC; 94003-TC; 94760-TC; 94799-TC; 99082-TC; A4217; A4223; A6403; G0378; J0692; J1720; J1815; J2185; J3370; J3371; J3480; J3490; J7030; J7040; J7050; J7060

== ENCOUNTER 2024-05-09 21:23 | Inpatient (IN) | payer MEDICAID ==
[~2024-05-09] VITALS: Ht 167.6 cm; Wt 64.4 kg
[~2024-05-09 21:23] MED LIST: ACET-637 GT; ACET325T53 GT; AMIN30LI66 GT; APIX5TAB GT; ASCO500L2 GT; ATOR20TA GT; CRAN300T GT; DOCU100C36 GT; INSU100V39 SQ; LINA5TAB GT; MAGN400O6 GT; METF-442 GT; MULT9LIQ6 GT; SENN-261 GT
[2024-05-09 21:52] LABS: ABG BASE EXCESS 1.6 mmol/L (-2.0-3.0); ABG OXYGEN SATURATION 97.1 % (94.0-98.0); ABG PCO2 32.6 mmHg (35.0-48.0); ABG PH 7.494 (7.350-7.450); ABG PO2 92.8 mmHg (83.0-108.0); ABG TOTAL HEMOGLOBIN 11.1 G/dL (13.5-17.5); COHb 0.3 % (0.5-1.5); MetHb 0.2 % (0.0-1.5); O2Hb 96.6 % (94.0-97.0); SITE, ABG LEFT RADIAL
[2024-05-09 21:55] LABS: BASOPHILS % (AUTO) 0.1 % (0.0-2.0); HEMATOCRIT 34 % (39-51); HEMOGLOBIN 10.4 g/dL (13.5-17.5); LYMPHOCYTES # (AUTO) 0.9 K/uL (0.8-4.8); LYMPHOCYTES % (AUTO) 7.5 % (20.0-44.0); MEAN CORPUSCULAR HEMOGLOBIN 22 PG (26.0-33.0); MEAN CORPUSCULAR HGB CONC 31 g/dl (31.0-36.0); MEAN CORPUSCULAR VOLUME 72 fL (80-96); MONOCYTES # (AUTO) 0.6 K/uL (0.1-1.30); MONOCYTES % (AUTO) 4.9 % (2.0-12.0); NEUTROPHILS % (AUTO) 87.5 % (43.0-81.0); PLATELET COUNT (AUTO) 357 K/uL (150-450); RED BLOOD CELL COUNT(AUTO) 4.71 MIL/uL (4.5-6.0); RED CELL DISTRIBUTION WIDTH 19.6 % (11.5-15.0); WHITE BLOOD COUNT (AUTO) 11.5 K/uL (4.3-11.0)
[2024-05-09 22:00] LABS: CALCIUM, SERUM 9.1 mg/dL (8.5-10.1); CARBON DIOXIDE 27 mmol/L (21-32); CHLORIDE 106 mmol/L (98-107); CREATININE 1.2 mg/dL (0.6-1.3); GLUCOSE 255 mg/dL (74-106); POTASSIUM 4.6 mmol/L (3.5-5.1); SODIUM SERUM 141 mmol/L (136-145); UREA NITROGEN, BLOOD 46 mg/dL (7-18)
[2024-05-09 22:06] LABS: INR 1.35 (0.91-1.10); PARTIAL THROMBOPLASTIN TIME 30.7 SEC (24.3-34.3)
[2024-05-09 22:13] LABS: ALANINE AMINOTRANSFERASE 16 U/L (12-78); ALBUMIN 2.1 g/dL (3.4-5.0); ALKALINE PHOSPHATASE 199 U/L (46-116); ASPARTATE AMINOTRANSFERASE 28 U/L (15-37); BILIRUBIN,DIRECT 0.2 mg/dL (0.0-0.2); BILIRUBIN,TOTAL 0.4 mg/dL (0.2-1.0); NT-PRO BNP 3978 pg/mL (0-125); TOTAL PROTEIN, SERUM 9.5 g/dL (6.4-8.2)
[2024-05-09 22:16] LABS: LACTIC ACID 3.6 mmol/L (0.4-2.0)
[2024-05-09] MEDS ORDERED: PIPERACI/TAZO 3.375GM/D5W 50ML PB IV ONE (22:18)
[2024-05-09] MEDS: PIPERACILLIN /TAZOBACTAM 3.375 G in IV D5W 50 ML IV ONE (22:45)
[2024-05-09] MEDS: IV NS 0.9% 1,000 ML IV ONE ×2 (22:46)
[2024-05-09 23:12] LABS: APPEARANCE,URINE SLIGHTLY CLOUDY (CLEAR); BILIRUBIN,URINE NEGATIVE (NEGATIVE); BLOOD, URINE 3+ Ery/uL (NEGATIVE); COLOR,URINE YELLOW (YELLOW); KETONES,URINE TRACE mg/dL (NEGATIVE); LEUKOCYTE ESTERASE ,URINE 2+ (NEGATIVE); NITRITE, URINE NEGATIVE (NEGATIVE); PROTEIN,URINE 2+ mg/dl (NEGATIVE); UGLUCOSE NEGATIVE (NEGATIVE)
[2024-05-09 23:39] LABS: ADD URINE CULTURE YES; BACTERIA,URINE 2+ /HPF (None Seen); MUCUS,URINE Moderate /LPF (None Seen); SQUAMOUS EPITHELIAL CELL,UR None Seen /HPF (None Seen); WBC,URINE 21-50 /HPF (0-3)
[2024-05-10] MEDS ORDERED: DEXTROSE 50%-WATER 50 ML DISP.SYRIN IV PRN
[2024-05-10] MEDS ORDERED: IPRATROPIUM NEB FS 0.5 MG/2.5 ML AMPUL.NEB NEB PRN
[2024-05-10] MEDS ORDERED: ALBUTEROL FS 2.5 MG/3 ML VIAL.NEB NEB PRN
[2024-05-10] MEDS ORDERED: ENOXAPARIN SODIUM 40 MG/0.4 ML DISP.SYRIN SQ SCH
[2024-05-10] MEDS ORDERED: ONDANSETRON HCL/PF 4 MG/2 ML VIAL IVP PRN
[2024-05-10 01:30] VITALS: BP 92/63; TEMP 97.3; O2SAT 100
[2024-05-10] MEDS: IV NS 0.9% 1,000 ML IV PRN (02:00)
[2024-05-10] MEDS: VANCOMYCIN 1 GM /D5W 250 ML PB IV ONE (02:01)
[2024-05-10] MEDS: VANCOMYCIN 1 GM in IV NS 0.9% 250 ML IV ONE (02:04)
[2024-05-10] MEDS: BLOOD SUGAR DIAGNOSTIC 1 EACH STRIP IN SCH (02:11)
[2024-05-10] MEDS: INSULIN REGULAR, HUMAN 100 UNIT/ML 3 ML VIAL SQ PRN (02:11)
[2024-05-10 04:00] VITALS: BP 93/60; TEMP 97.3; O2SAT 100
[2024-05-10 07:20] LABS: BASOPHILS % (AUTO) 0.3 % (0.0-2.0); EOSINOPHILS % (AUTO) 0.4 % (0.0-6.0); HEMATOCRIT 31 % (39-51); HEMOGLOBIN 9.4 g/dL (13.5-17.5); LYMPHOCYTES # (AUTO) 0.9 K/uL (0.8-4.8); LYMPHOCYTES % (AUTO) 12.3 % (20.0-44.0); MEAN CORPUSCULAR HEMOGLOBIN 22 PG (26.0-33.0); MEAN CORPUSCULAR HGB CONC 30 g/dl (31.0-36.0); MEAN CORPUSCULAR VOLUME 71 fL (80-96); MONOCYTES # (AUTO) 0.7 K/uL (0.1-1.30); MONOCYTES % (AUTO) 10.2 % (2.0-12.0); NEUTROPHILS # (AUTO) 5.4 K/uL (1.8-8.9); NEUTROPHILS % (AUTO) 76.8 % (43.0-81.0); PLATELET COUNT (AUTO) 302 K/uL (150-450); RED BLOOD CELL COUNT(AUTO) 4.32 MIL/uL (4.5-6.0); RED CELL DISTRIBUTION WIDTH 19.8 % (11.5-15.0)
[2024-05-10 07:42] LABS: CALCIUM, SERUM 9.1 mg/dL (8.5-10.1); CREATININE 0.9 mg/dL (0.6-1.3); MAGNESIUM 2.4 mg/dL (1.8-2.4); PHOSPHORUS 3.4 mg/dL (2.5-4.9); POTASSIUM 4.1 mmol/L (3.5-5.1)
[2024-05-10] MEDS ORDERED: SITA100T GT (07:51)
[2024-05-10] MEDS ORDERED: POLY17PO4 GT (07:51)
[2024-05-10] MEDS ORDERED: IPRA3AMP23 NEB (07:51)
[2024-05-10] MEDS ORDERED: GLUC1KIT IM (07:51)
[2024-05-10] MEDS ORDERED: SODI100037 GT (07:51)
[2024-05-10] MEDS ORDERED: FERR325T24 GT (07:51)
[2024-05-10] MEDS ORDERED: ASCO500T10 GT (07:51)
[2024-05-10] MEDS ORDERED: ZINC50TA69 GT (07:51)
[2024-05-10] MEDS ORDERED: FAMO20TA8 GT (07:51)
[2024-05-10] MEDS ORDERED: MULT-213 GT (07:51)
[2024-05-10] MEDS ORDERED: ONDA-97 GT (07:51)
[2024-05-10] MEDS ORDERED: NUT.237L30 GT (07:51)
[2024-05-10 08:00] VITALS: BP 87/67; TEMP 97.9; O2SAT 98
[2024-05-10] MEDS: CEFEPIME 1 GM in IV D5W 50 ML IV SCH (08:15)
[2024-05-10] MEDS: PANTOPRAZOLE 40 MG VIAL IV SCH (08:15)
[2024-05-10 08:16] LABS: THYROID STIMULATING HORMONE 1.97 uIU/mL (0.358-3.74)
[2024-05-10] MEDS ORDERED: ENOXAPARIN SODIUM 30 MG/0.3 ML DISP.SYRIN SQ SCH (10:00)
[2024-05-10] MEDS: IV NS 0.9% 500 ML IV ONE (10:50)
[2024-05-10] MEDS: SODIUM CHLORIDE 1000 MG TABLET GT SCH (10:59)
[2024-05-10] MEDS: POLYETHYLENE GLYCOL 3350 17 GM POWD.PACK GT SCH (10:59)
[2024-05-10] MEDS: ASCORBIC ACID 500 MG TABLET GT SCH (11:01)
[2024-05-10] MEDS: METFORMIN 500 MG TABLET PO SCH (11:01)
[2024-05-10] MEDS: FERROUS SULFATE (325 MG) 325 MG/TAB TABLET GT SCH (11:01)
[2024-05-10] MEDS: FAMOTIDINE (20 MG) 20 MG TABLET GT SCH (11:02)
[2024-05-10] MEDS: ZINC SULFATE 220 MG CAPSULE PO SCH (11:02)
[2024-05-10] MEDS: DOCUSATE SODIUM 100 MG CAPSULE PO SCH (11:03)
[2024-05-10] MEDS: APIXABAN 5 MG TABLET GT SCH (11:40)
[2024-05-10 12:00] VITALS: BP 88/73; TEMP 97.9; O2SAT 100
[2024-05-10] MEDS: VANCOMYCIN 750 MG in IV D5W 250 ML IV SCH (13:28)
[2024-05-10] MEDS: GLUCERNA 1.2 1,000 ML BOTTLE NG PRN (14:24)
[2024-05-10 16:00] VITALS: BP 89/68; TEMP 98.4; O2SAT 100
[2024-05-10 20:00] VITALS: BP 101/73; TEMP 97.8; O2SAT 97
[2024-05-10] MEDS: ATORVASTATIN 10 MG TABLET PO SCH (22:14)
[2024-05-10] MEDS: SENNOSIDES 8.6 MG TABLET GT SCH (22:14)
[2024-05-11] VITALS: BP 101/74; TEMP 98.6; O2SAT 97
[2024-05-11 04:00] VITALS: BP 97/72; TEMP 98.8; O2SAT 97
[2024-05-11 07:06] LABS: BASOPHILS % (AUTO) 0.3 % (0.0-2.0); EOSINOPHILS % (AUTO) 0.4 % (0.0-6.0); HEMATOCRIT 30 % (39-51); HEMOGLOBIN 9.4 g/dL (13.5-17.5); LYMPHOCYTES % (AUTO) 9.9 % (20.0-44.0); MEAN CORPUSCULAR HEMOGLOBIN 22 PG (26.0-33.0); MEAN CORPUSCULAR HGB CONC 32 g/dl (31.0-36.0); MEAN CORPUSCULAR VOLUME 71 fL (80-96); MONOCYTES # (AUTO) 0.9 K/uL (0.1-1.30); MONOCYTES % (AUTO) 8.9 % (2.0-12.0); NEUTROPHILS % (AUTO) 80.5 % (43.0-81.0); PLATELET COUNT (AUTO) 313 K/uL (150-450); RED BLOOD CELL COUNT(AUTO) 4.19 MIL/uL (4.5-6.0); RED CELL DISTRIBUTION WIDTH 19.5 % (11.5-15.0); WHITE BLOOD COUNT (AUTO) 9.9 K/uL (4.3-11.0)
[2024-05-11 07:20] LABS: ALBUMIN 1.7 g/dL (3.4-5.0); BILIRUBIN,TOTAL 0.4 mg/dL (0.2-1.0); CREATININE 0.9 mg/dL (0.6-1.3); MAGNESIUM 2.2 mg/dL (1.8-2.4); PHOSPHORUS 2.5 mg/dL (2.5-4.9); POTASSIUM 3.9 mmol/L (3.5-5.1)
[2024-05-11 08:00] VITALS: BP 102/61; TEMP 98.1; O2SAT 96
[2024-05-11] MEDS: LINAGLIPTIN 5 MG TABLET PO SCH (08:39)
[2024-05-11] MEDS: MULTIVITAMINS,THERAGRAN 1 UDTAB TABLET GT SCH (08:43)
[2024-05-11] MEDS: PANTOPRAZOLE 40 MG/PACK PACK NG SCH (08:44)
[2024-05-11] MEDS: THERAHONEY GEL 1.5 OZ TUBE TP SCH (09:59)
[2024-05-11] MEDS: NEOMY SULF/BACITRAC ZN/POLY 15 GM TUBE TP SCH (09:59)
[2024-05-11] MEDS: ARGININE/GLUTAMINE/CALCIUM BMB 1 EACH POWD.PACK GT SCH (12:50)
[2024-05-11] MEDS: PROSOURCE / PROSTAT (PYXIS) 30 ML UDC GT SCH (12:51)
[2024-05-11 16:00] VITALS: BP 101/71; TEMP 97.5; O2SAT 97
[2024-05-11 20:00] VITALS: BP 145/68; TEMP 97.2; O2SAT 93
[2024-05-12 04:00] VITALS: BP 101/84; TEMP 98.6; O2SAT 99
[2024-05-12 07:08] LABS: PTH, INTACT 19 pg/mL (15-65)
[2024-05-12 08:00] VITALS: BP 103/74; TEMP 97.9; O2SAT 99
[2024-05-12 08:33] LABS: BASOPHILS % (AUTO) 0.4 % (0.0-2.0); EOSINOPHILS # (AUTO) 0.1 K/uL (0.0-0.7); EOSINOPHILS % (AUTO) 1.1 % (0.0-6.0); HEMATOCRIT 32 % (39-51); HEMOGLOBIN 9.7 g/dL (13.5-17.5); LYMPHOCYTES # (AUTO) 1.1 K/uL (0.8-4.8); LYMPHOCYTES % (AUTO) 14.9 % (20.0-44.0); MEAN CORPUSCULAR HEMOGLOBIN 22 PG (26.0-33.0); MEAN CORPUSCULAR HGB CONC 30 g/dl (31.0-36.0); MEAN CORPUSCULAR VOLUME 73 fL (80-96); MONOCYTES % (AUTO) 13.5 % (2.0-12.0); NEUTROPHILS # (AUTO) 5.1 K/uL (1.8-8.9); NEUTROPHILS % (AUTO) 70.1 % (43.0-81.0); PLATELET COUNT (AUTO) 286 K/uL (150-450); RED BLOOD CELL COUNT(AUTO) 4.44 MIL/uL (4.5-6.0); RED CELL DISTRIBUTION WIDTH 20.1 % (11.5-15.0); WHITE BLOOD COUNT (AUTO) 7.3 K/uL (4.3-11.0)
[2024-05-12 09:09] LABS: CREATININE 0.6 mg/dL (0.6-1.3); POTASSIUM 4.2 mmol/L (3.5-5.1)
[2024-05-12 09:38] LABS: MAGNESIUM 2.2 mg/dL (1.8-2.4); PHOSPHORUS 2.5 mg/dL (2.5-4.9)
[2024-05-12] MEDS: Z GUARD REMEDY 4 OZ OINT TP PRN (10:15)
[2024-05-12] MEDS: AMMONIUM LACTATE 227 GM BOTTLE TP SCH (10:15)
[2024-05-12] MEDS ORDERED: MEROPENEM 500 MG in IV NS 0.9% 50 ML IV SCH (15:30)
[2024-05-12 16:00] VITALS: BP 103/74; TEMP 97.9; O2SAT 99
[2024-05-12] MEDS: MEROPENEM 1 G in IV NS 0.9% 100 ML IV SCH (18:46)
[2024-05-12 20:00] VITALS: BP 106/66; TEMP 97.7; O2SAT 100
[2024-05-12] MEDS: MUPIROCIN OINT 2% 22 GM TUBE NS SCH (20:34)
[2024-05-13 04:00] VITALS: BP 94/71; TEMP 98.4; O2SAT 97
[2024-05-13 08:00] VITALS: BP 99/70; TEMP 98.2; O2SAT 97
[2024-05-13 08:33] LABS: CALCIUM, SERUM 9.1 mg/dL (8.5-10.1); CREATININE 0.7 mg/dL (0.6-1.3); POTASSIUM 4.2 mmol/L (3.5-5.1)
[2024-05-13 16:00] VITALS: BP 100/74; TEMP 98.2; O2SAT 99
[2024-05-13 20:00] VITALS: BP 106/80; TEMP 97.7; O2SAT 99
[2024-05-14 04:00] VITALS: BP 95/69; TEMP 98.2; O2SAT 99
[2024-05-15 13:10] LABS: *SPE A/G RATIO 0.4 (0.7-1.7); *SPE ALPHA-1-GLOBULIN 0.4 g/dL (0.0-0.4); *SPE BETA GLOBULIN 1.3 g/dL (0.7-1.3); *SPE GLOBULIN, TOTAL 5.5 g/dL (2.2-3.9); *SPE M-SPIKE Not Observed g/dL (Not Observed); *SPE PROTEIN TOTAL 7.5 g/dL (6.0-8.5); *SPEGAMMA GLOBULIN 2.8 g/dL (0.4-1.8)
== END 2024-05-14 17:25 | DRG 710 ==
LOC: ER 21:30 → TELE1 05-10 00:46 → MEDSG1 05-11 10:20
PROVIDERS: ADMIT Nurse Practitioner Acute Care; ATTEND Internal Medicine
PROC: 0KBP0ZZ Excision of Left Hip Muscle, Open Approach (ICD-10-PCS; principal; 2024-05-13)
PROC: 0KBN0ZZ Excision of Right Hip Muscle, Open Approach (ICD-10-PCS; 2024-05-13)
PROC: 0JBL0ZZ Excision of Right Upper Leg Subcutaneous Tissue and Fascia, Open Approach (ICD-10-PCS; 2024-05-13)
DX: A41.1 Sepsis due to other specified staphylococcus (principal); J96.01 Acute respiratory failure with hypoxia; G93.41 Metabolic encephalopathy; E43 Unspecified severe protein-calorie malnutrition; J15.69 Pneumonia due to other Gram-negative bacteria; L89.154 Pressure ulcer of sacral region, stage 4; N17.9 Acute kidney failure, unspecified; L89.213 Pressure ulcer of right hip, stage 3; R65.20 Severe sepsis without septic shock; J44.0 Chronic obstructive pulmonary disease with (acute) lower respiratory infection; Z86.73 Personal history of transient ischemic attack (TIA), and cerebral infarction without residual deficits; I25.2 Old myocardial infarction; L89.629 Pressure ulcer of left heel, unspecified stage; M89.8X9 Other specified disorders of bone, unspecified site; I10 Essential (primary) hypertension; E11.51 Type 2 diabetes mellitus with diabetic peripheral angiopathy without gangrene; E11.621 Type 2 diabetes mellitus with foot ulcer; L97.429 Non-pressure chronic ulcer of left heel and midfoot with unspecified severity; Z74.01 Bed confinement status; M24.521 Contracture, right elbow; Z79.4 Long term (current) use of insulin; Z79.84 Long term (current) use of oral hypoglycemic drugs; Z79.899 Other long term (current) drug therapy; Z79.01 Long term (current) use of anticoagulants; Z93.1 Gastrostomy status; Z16.24 Resistance to multiple antibiotics; Z87.01 Personal history of pneumonia (recurrent); Y95 Nosocomial condition; N39.0 Urinary tract infection, site not specified; B96.89 Other specified bacterial agents as the cause of diseases classified elsewhere; R13.10 Dysphagia, unspecified; E78.5 Hyperlipidemia, unspecified; E86.0 Dehydration; E87.20 Acidosis, unspecified; E88.09 Other disorders of plasma-protein metabolism, not elsewhere classified; F01.50 Vascular dementia, unspecified severity, without behavioral disturbance, psychotic disturbance, mood disturbance, and anxiety; E11.65 Type 2 diabetes mellitus with hyperglycemia; Z74.09 Other reduced mobility; D68.59 Other primary thrombophilia; D50.9 Iron deficiency anemia, unspecified; I48.20 Chronic atrial fibrillation, unspecified; F09 Unspecified mental disorder due to known physiological condition; E86.9 Volume depletion, unspecified; S31.20XA Unspecified open wound of penis, initial encounter; X58.XXXA Exposure to other specified factors, initial encounter; Y92.9 Unspecified place or not applicable; B96.4 Proteus (mirabilis) (morganii) as the cause of diseases classified elsewhere; Z79.51 Long term (current) use of inhaled steroids
CPT/HCPCS: 36415; 36600; 71045-TC; 80048-TC; 80053-TC; 80076-TC; 80202-TC; 81001; 82550-TC; 82803-TC; 82962-TC; 83605-TC; 83735-TC; 83880; 83970; 84100-TC; 84155; 84165; 84443-TC; 84484-TC; 85025-TC; 85730-TC; 87040-TC; 87081-TC; 87086-TC; 87186-TC; A4223; A6403; G0378; J0692; J1815; J2185; J2470; J2543; J3370; J3371; J7030; J7040; J7050; J7060